=== PATIENT | male | born 1945 | race Caucasian/White ===

== ENCOUNTER 2022-07-10 08:20 | Outpatient (CLI) | payer MEDICARE, OTHER, SELFPAY ==
[2022-07-10 12:29] LABS: Chloride* 104 mmol/L (96-114)
[2022-07-10 12:30] LABS: Potassium* 4.5 mmol/L (3.6-5.1); Sodium* 138 mmol/L (135-149)
[2022-07-10 12:32] LABS: Blood Urea Nitrogen* 22 mg/dL (7-30); Carbon Dioxide* 28 mmol/L (20-32); Cholesterol* 162 mg/dL (90-199); Estimated Glomerular Filt Rate 77 ml/min; Glucose* 103 mg/dL (60-115)
[2022-07-10 12:33] LABS: Calcium* 8.7 mg/dL (8.4-10.6); HDL Cholesterol* 61 mg/dL (>=40); LDL Cholesterol Calculated 86 mg/dL (<100); Triglycerides* 76 mg/dL (40-149)
[2022-07-11 11:55] LABS: Sex Hormone Binding Globulin 38 nmol/L (19-76); Testosterone, Adult Male 261 ng/dL (300-720); Testosterone, Free Calculation 43 pg/mL (47-244); Testosterone, Percentage Free 1.6 % (1.6-2.9)
== END 2022-07-10 08:21 | disposition home or self-care (01) ==
LOC: NFLDREF 08:20
PROVIDERS: PCP Internal Medicine; Visit Provider Internal Medicine
DX: Z00.00 Encounter for general adult medical examination without abnormal findings (principal); R79.89 Other specified abnormal findings of blood chemistry; I10 Essential (primary) hypertension; E78.5 Hyperlipidemia, unspecified; F41.9 Anxiety disorder, unspecified
CPT/HCPCS: 80048; 80061; 84270; 84402; 84403

== ENCOUNTER 2022-07-30 14:25 | Outpatient (CLI) | payer MEDICARE, OTHER, SELFPAY ==
--- OUTSIDE RECORDS SUMMARY | 2022-07-30 14:27 | XMS_ITS | Clinical Summary ---
:1945 Author Organization [facility] [facility] [place] [address] Care Team Providers Name Role Phone Listed, Not Primary Care Provider Unavailable Allergies No known active allergies Medications Medication Sig Dispensed Refills Start Date End Date Status amLODIPine (NORVASC) 5 0 06/27/2020 Active mg tablet losartan (COZAAR) 100 0 08/12/2020 Active mg tablet simvastatin (ZOCOR) 10 0 07/17/2020 Active mg tablet tamsulosin (FLOMAX) 0.4 0 07/03/2020 Active mg capsule FLUoxetine 20 mg tablet 0 07/17/2020 Active aspirin chewable 81 mg Chew 1 Tablet (81 0 2 Active chewable tablet mg) by mouth once daily with a meal. Active Problems No known active problems Social History Tobacco Use Types Packs/Day Years Used Date Never Assessed Sex Assigned at Date Recorded Not on file Obstetrics History Last Filed Vital Signs Vital Sign Reading Time Taken Comments Blood Pressure 122/50 02/24/2022 1:38 PM CDT Pulse 86 02/24/2022 1:38 PM CDT Temperature 36.7 ??C (98.1 ??F) 02/24/2022 1:38 PM CDT Respiratory Rate 18 02/24/2022 1:38 PM CDT Oxygen Saturation 99% 02/24/2022 1:38 PM CDT Inhaled Oxygen Concentration - - Weight 85.3 kg (188 lb) 02/24/2022 1:38 PM CDT Height - - Body Mass Index - - Plan of Treatment Health Maintenance Due Date Last Done Comments Tdap 1954 Depression screening for age 12+ 1955 BMI (ht and wt on same day) for age 1211/11/1961 18+ Hepatitis C screening for age 18-79 1961 Tetanus booster 1963 Zoster (shingles) series for age 50+ 1993 (1 of 2) Pneumococcal series for age 65+ (1 - 2008 PCV) COVID-19 vaccine series (4 - Booster 11/13/2021 07/14/2021, 01/24/2021, for Pfizer series) 01/03/2021 Influenza for age 65+ 07/19/2022 Results Not on filefrom Last 3 Months Insurance Payer Benefit Plan / Subscriber ID Effective Dates Phone Addre ss Type Group MEDICARE PART B MEDICARE PART B [id number] 2008-Presen ATTN: CLAIMS - HB USE ONLY HB ONLY t [address] [place] [address] MEDICARE - PB MEDICARE PB [id number] 2008-Presen ATT N: CLAIMS USE ONLY ONLY t [address] [place] [address] PREFERRED ONE [employer] [id number] 2018-Presen [id number] [place] [address] Care Teams Fire Information Officer Relationship Specialty Start Date End Date Listed, Not PCP - General 07/12/20 [place] [address]
[2022-07-30 16:00] LABS: Albumin* 4.2 g/dL (3.3-5.0)
[2022-07-30 16:03] LABS: Alanine Aminotransferase* 14 U/L (4-50); Alkaline Phosphatase* 83 U/L (40-150); Aspartate Amino Transferase* 24 U/L (12-35); Bilirubin Direct* 0.2 mg/dL (0.0-0.5); Bilirubin Total* 0.6 mg/dL (0.1-1.5); Total Protein* 6.7 g/dL (6.0-8.3)
== END 2022-07-30 14:26 | disposition home or self-care (01) ==
PROVIDERS: PCP Internal Medicine; Visit Provider Internal Medicine
DX: R53.81 Other malaise (principal); R53.83 Other fatigue; E78.5 Hyperlipidemia, unspecified; I10 Essential (primary) hypertension; N40.0 Benign prostatic hyperplasia without lower urinary tract symptoms
CPT/HCPCS: 80076; 84443

== ENCOUNTER 2022-09-04 08:52 | Outpatient (CLI) | payer MEDICARE, OTHER, SELFPAY ==
--- OUTSIDE RECORDS SUMMARY | 2022-09-04 09:09 | XMS_ITS | Clinical Summary ---
:1945 Author Organization [facility] [facility] [place] [address] Care Team Providers Name Role Phone Listed, [...] PCV) COVID-19 vaccine series (4 - Booster 09/08/2021 07/14/2021, 01/24/2021, for Pfizer series) 01/03/2021 Influenza for age 65+ 07/19/2022 Results Not on filefrom Last 3 Months Insurance Payer Benefit Plan / Subscriber ID Effective Dates Phone Addre ss Type Group MEDICARE PART B MEDICARE PART B [id number] 2008-Presen ATTN: CLAIMS - HB USE ONLY HB ONLY t [address] [place] [address] MEDICARE - PB MEDICARE PB [id number] 2008-Presen ATT N: CLAIMS USE ONLY ONLY t [address] [place] [address] PREF[employer] [id number] 2018-Presen [id number] [place] [address] Care Teams Bone Cooking Operator Relationship Specialty Start Date End Date Listed, Not PCP - General 07/12/20 [place] [address]
== END 2022-09-04 08:53 | disposition home or self-care (01) ==
LOC: OP CLINIC 08:52
PROVIDERS: PCP Internal Medicine; Visit Provider Surgery
DX: Z12.11 Encounter for screening for malignant neoplasm of colon (principal); K57.30 Diverticulosis of large intestine without perforation or abscess without bleeding; K63.5 Polyp of colon; Z85.038 Personal history of other malignant neoplasm of large intestine; Z98.0 Intestinal bypass and anastomosis status
CPT/HCPCS: 45385; 88305; 99153; J2250; J3010

== ENCOUNTER 2022-12-21 09:14 | Outpatient (CLI) | payer MEDICARE, OTHER, SELFPAY ==
[2022-12-21 09:32] LABS: Basophils Percent Auto 0.4 % (0.0-3.0); Eosinophils Percent Auto 2.4 % (0.0-7.0); Hematocrit 47.2 % (37.0-53.0); Hemoglobin* 15.5 gm/dL (13.5-17.5); Immature Granulocytes Pct Auto 0.2 %; Lymphocytes Percent Auto 24.8 % (20-44); Mean Corpuscular HGB Conc 33 gm/dL (32-36); Mean Corpuscular Hemoglobin 30 pg (26-34); Mean Corpuscular Volume 92 fL (80-100); Monocytes Percent Auto 11.3 % (0.0-11.0); Neutrophils Percent Auto 60.9 % (42.0-72.0); Platelet Count* 192 K/uL (140-440); Red Blood Count 5.11 m/uL (4.30-5.90)
[2022-12-21 09:37] LABS: White Blood Count* 4.67 K/uL (4.50-11.00)
[2022-12-21 09:38] LABS: Slide Review Reflex No
[2022-12-21 09:51] LABS: Chloride* 106 mmol/L (96-114)
[2022-12-21 09:52] LABS: Albumin* 4.1 g/dL (3.3-5.0); Potassium* 4.2 mmol/L (3.6-5.1); Sodium* 140 mmol/L (135-149)
[2022-12-21 09:54] LABS: Aspartate Amino Transferase* 25 U/L (12-35); Carbon Dioxide* 31 mmol/L (20-32); Estimated Glomerular Filt Rate 77 ml/min
[2022-12-21 09:55] LABS: Alanine Aminotransferase* 19 U/L (4-50); Alkaline Phosphatase* 71 U/L (40-150); Blood Urea Nitrogen* 21 mg/dL (7-30); Calcium* 8.7 mg/dL (8.4-10.6); Glucose* 104 mg/dL (60-115)
--- NOTE | 2022-12-21 10:00 | CRLHL7_ITS ---
For Patients: As a result of the Century Cures Act, medical imaging exams and procedure reports are released immediately into your electronic medical record. You may view this report before your referring provider. If you have questions, please contact your health care provider. INDICATION: Colon cancer. TECHNIQUE: CT abdomen and pelvis acquired with intravenous contrast, 89 mL of Isovue 370. Coronal and sagittal reformats. COMPARISON: CT 03/21/2022. FINDINGS: The imaged lower chest demonstrates coronary artery calcifications. - Normal liver contour. No suspicious hepatic lesion. The portal veins are patent. No biliary dilatation. The gallbladder, pancreas, spleen, and adrenals are unremarkable. - Symmetric renal enhancement. Small left anterior renal cyst. Tiny nonobstructing left renal calculus. No hydronephrosis bilaterally. Unremarkable bladder. - Redemonstrated postsurgical changes of partial colectomy. The remaining colon appears normal in caliber and enhancement with extensive stool. Nondilated small bowel. - No free air, free fluid, focal collection, or lymphadenopathy. Unchanged retroaortic lymph node measuring 0.9 cm short axis (series 2, image 73). - Normal caliber abdominal aorta with moderate atherosclerotic calcification. Right total hip arthroplasty. Multilevel lumbar spondylosis. No suspicious osseous lesion. IMPRESSION: No evidence of abdominal/pelvic metastatic disease status post partial colectomy. Please note that all CT scans at this facility use dose modulation, iterative reconstruction, and/or weight-based dosing when appropriate to reduce radiation dose to as low as reasonably achievable. Dictated by Issa Kan MD @ 12/23/2022 2:35:21 PM (Electronically Signed)
== END 2022-12-21 09:15 | disposition home or self-care (01) ==
LOC: CT 09:15
PROVIDERS: PCP Internal Medicine; Visit Provider Internal Medicine Medical Oncology
DX: C18.9 Malignant neoplasm of colon, unspecified (principal)
CPT/HCPCS: 36415; 74177; 80053; 85025; Q9967

== ENCOUNTER 2023-01-07 13:30 | Outpatient (RCR) | payer MEDICARE, OTHER, SELFPAY ==
[2022-09-17 14:21] LABS: Basophils Absolute Auto 0.02 K/uL (0.00-0.30); Basophils Percent Auto 0.4 % (0.0-3.0); Eosinophils Absolute Auto 0.07 K/uL (0.00-0.50); Eosinophils Percent Auto 1.5 % (0.0-7.0); Hematocrit 42.9 % (37.0-53.0); Hemoglobin* 14.2 gm/dL (13.5-17.5); Immature Granulocytes Abs Auto 0.01 K/uL (0.00-0.30); Lymphocytes Absolute Auto 1.21 K/uL (0.90-2.90); Lymphocytes Percent Auto 26.8 % (20-44); Mean Corpuscular HGB Conc 33 gm/dL (32-36); Mean Corpuscular Hemoglobin 30 pg (26-34); Mean Corpuscular Volume 91 fL (80-100); Monocytes Percent Auto 10.4 % (0.0-11.0); Neutrophils Absolute Auto 2.74 K/uL (1.7-7.0); Neutrophils Percent Auto 60.7 % (42.0-72.0); Platelet Count* 195 K/uL (140-440); RDW Coefficient of Variation % 13.1 % (11.5-15.5); Red Blood Count 4.73 m/uL (4.30-5.90); White Blood Count* 4.52 K/uL (4.50-11.00)
[2022-09-17 14:29] LABS: Slide Review Reflex No
[2022-09-17 14:38] LABS: Chloride* 103 mmol/L (96-114)
[2022-09-17 14:39] LABS: Albumin* 4.2 g/dL (3.3-5.0); Potassium* 4.1 mmol/L (3.6-5.1); Sodium* 136 mmol/L (135-149)
[2022-09-17 14:42] LABS: Alanine Aminotransferase* 17 U/L (4-50); Alkaline Phosphatase* 79 U/L (40-150); Aspartate Amino Transferase* 24 U/L (12-35); Bilirubin Total* 0.5 mg/dL (0.1-1.5); Blood Urea Nitrogen* 21 mg/dL (7-30); Carbon Dioxide* 28 mmol/L (20-32); Creatinine* 0.9 mg/dL (0.5-1.5); Estimated Glomerular Filt Rate 87 ml/min; Glucose* 92 mg/dL (60-115); Total Protein* 6.7 g/dL (6.0-8.3)
[2022-09-17 14:43] LABS: Calcium* 8.5 mg/dL (8.4-10.6)
[2022-09-19 14:41] LABS: Carcinoembryonic Antigen 1.7 ng/mL
== END 2023-03-16 23:59 | disposition home or self-care (01) ==
LOC: CCIC 13:30
PROVIDERS: Internal Medicine Medical Oncology; Nurse Practitioner Family; PCP Internal Medicine; Referring Provider Internal Medicine; Visit Provider Physician Assistant
DX: C18.9 Malignant neoplasm of colon, unspecified (principal); D12.6 Benign neoplasm of colon, unspecified; L98.9 Disorder of the skin and subcutaneous tissue, unspecified
CPT/HCPCS: 36415; 80053; 82378; 85025; 99212; 99214; 99215

== ENCOUNTER 2023-07-29 08:08 | Outpatient (CLI) | payer MEDICARE, OTHER, SELFPAY | END 2023-07-29 08:09 | disposition home or self-care (01) | LOC: NFLDREF 07-31 01:13 | PROVIDERS: PCP Internal Medicine; Referring Provider Internal Medicine; Visit Provider Physician Assistant | DX: C18.9 Malignant neoplasm of colon, unspecified (principal); L98.9 Disorder of the skin and subcutaneous tissue, unspecified; E78.5 Hyperlipidemia, unspecified; I10 Essential (primary) hypertension | CPT/HCPCS: 80048; 80053; 80061; 82378; 84403 ==

== ENCOUNTER 2023-08-26 09:29 | Outpatient (CLI) | payer MEDICARE, OTHER, SELFPAY ==
--- NOTE | 2023-08-26 10:00 | CRLHL7_ITS ---
For Patients: As a result of the Century Cures Act, medical imaging exams and procedure reports are released immediately into your electronic medical record. You may view this report before your referring provider. If you have questions, please contact your health care provider. Indication: ADENOCARCINOMA OF LARGE INTESTINE FOLLOW UP Technique: Postcontrast CT chest, abdomen and pelvis. 88 cc Isovue 370 intravenous contrast. Please note that all CT scans at this facility use dose modulation, iterative reconstruction, and/or weight-based dosing when appropriate to reduce radiation dose to as low as reasonably achievable. Comparison: 12/21/2022 Findings: In the chest, minimal scarring is present. No pleural effusion, pneumothorax, pulmonary edema or infiltrate. No suspicious pulmonary nodule. No enlarged mediastinal, hilar or axillary lymph nodes. No fracture. In the abdomen, there is no intrahepatic mass. The gallbladder is incompletely distended. No calcified gallstones. No biliary obstruction. Calcification adjacent to the pancreas body is similar. Atherosclerotic changes in the aorta. Normal adrenal glands. Spleen is normal. Subcentimeter retroperitoneal lymph nodes are similar, including a left periaortic lymph node measuring 9 millimeters. Simple cyst left kidney measuring 2.3 cm. Nonobstructing 3 millimeter stone midportion left kidney. Right kidney normal. Postop changes of partial bowel resection. No bowel obstruction. Excess stool in the colon. No bowel wall thickening. No abdominal wall hernia. Similar subcentimeter mesenteric lymph nodes. In the pelvis, postop changes of the lower abdominal wall hernia repair. Right hip replacement hardware. Bladder normal. Degenerative changes lumbar spine with mild rightward curvature. No compression fracture. Impression: Innumerable subcentimeter retroperitoneal lymph nodes are similar to the prior study. Also similar subcentimeter mesenteric lymph nodes. Stable postop changes partial bowel resection. Chronic constipation. No bowel obstruction or inflammatory change. No evidence of metastatic disease to the chest or liver. Please note that all CT scans at this facility use dose modulation, iterative reconstruction, and/or weight-based dosing when appropriate to reduce radiation dose to as low as reasonably achievable. Dictated by Stephon Dempsey MD @ 08/26/2023 12:46:20 PM (Electronically Signed)
== END 2023-08-26 09:30 | disposition home or self-care (01) ==
PROVIDERS: PCP Internal Medicine; Visit Provider Physician Assistant
DX: C18.9 Malignant neoplasm of colon, unspecified (principal); K59.09 Other constipation
CPT/HCPCS: 71260; 74177; Q9967

== ENCOUNTER 2023-09-09 07:20 | Outpatient (CLI) | payer MEDICARE, OTHER, SELFPAY ==
--- NOTE | 2023-09-09 08:31 | W.ANESCHARGE ---
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
== END 2023-09-09 07:21 | disposition home or self-care (01) ==
LOC: OP CLINIC 07:20
PROVIDERS: PCP Internal Medicine; Visit Provider Internal Medicine
DX: Z12.11 Encounter for screening for malignant neoplasm of colon (principal); K63.5 Polyp of colon; K57.30 Diverticulosis of large intestine without perforation or abscess without bleeding; Z86.010 Personal history of colon polyps; Z85.038 Personal history of other malignant neoplasm of large intestine
CPT/HCPCS: 00812; 45380; 88305; 99100; J2704

== ENCOUNTER 2024-03-03 08:17 | Outpatient (CLI) | payer MEDICARE, OTHER, SELFPAY ==
--- OUTSIDE RECORDS SUMMARY | 2024-03-03 08:20 | XMS_ITS | Clinical Summary ---
Author Name Unknown Organization [facility] Address [place], [place] [address] Care Team Providers Care Vp Informatics Name Role Phone Listed, Not Primary Care Provider Unavailabl e Allergies No known active allergies Medications Medication Sig Dispensed Refills Start Date End Date Status amLODIPine (NORVASC) 5 mg tablet 06/27/2020 Active losartan (COZAAR) 100 mg tablet 08/12/2020 Active simvastatin (ZOCOR) 10 mg tablet 07/17/2020 Active tamsulosin (FLOMAX) 0.4 mg capsule 07/03/2020 Active FLUoxetine 20 mg tablet 07/17/2020 Active aspirin chewable 81 mg chewable tablet Chew 1 Tablet (81 mg) by mouth once daily with a meal. 0 02/24/2022 Active Active Problems No known active problems Social History Tobacco Use Types Packs/Day Years Used Date Smoking Tobacco: Never Assessed Sex and Gender Information Value Date Recorded Sex Assigned at Not on file Gender Identity Not on file Sexual Orientation Not on file Obstetrics History Last Filed Vital Signs Vital Sign Reading Time Taken Comments Blood Pressure 122/50 02/24/2022 1:38 PM CDT Pulse 86 02/24/2022 1:38 PM CDT Temperature 36.7 ??C (98.1 ??F) 02/24/2022 1:38 PM CD T Respiratory Rate 18 02/24/2022 1:38 PM CDT Oxygen Saturation 99% 02/24/2022 1:38 PM CDT Inhaled Oxygen Concentration - - Weight 85.3 kg (188 lb) 02/24/2022 1:38 PM CDT Height - - Body Mass Index - - Plan of Treatment Health Maintenance Due Date Last Done Comments Tdap 1954 Depression screening for age 12+ 1955 BMI (ht and wt on same day) for age 18+ 1961 Tetanus booster 1963 Zoster (shingles) series for age 50+ (1 of 2) 1993 Pneumococcal series for age 65+ (1 of 1 - PCV) 2008 COVID-19 vaccine series (4 - 2022-24 season) 2023 07/14/2021, 01/24/2021, 01/03/2021 Influenza for age 65+ 07/19/2024 Care Teams Vp Informatics Relationship Specialty Start Date End Date Listed, Not [place] [address] PCP - General 07/12/20
--- NOTE | 2024-03-03 09:00 | CT_ITS ---
Patient: MAHNAZ BOOTH Facility:?[facility] Patient ID:?[id number] Site Patient ID:?[id number]. Site :?1945 Study:?CT-Chest/Abd/Pelvis 88CC ISOVUE 370 AND WATER PREP-03/03/2024 9:33:13 AM Ordering Physician:?DR. ESPARZA Final Report: Indication: Follow-up colon cancer Technique: CT Chest/Abd/Pelvis 88CC ISOVUE 370 AND WATER PREP Please note that all CT scans at this facility use dose modulation, iterative reconstruction, and/or weight-based dosing when appropriate to reduce radiation dose to as low as reasonably achievable. Comparison: 08/26/2023 Findings: In the chest, small subpleural area of scarring within the superior segment of the right lower lobe is unchanged. No suspicious pulmonary nodule. Mild dependent scarring within the right lower lobe. Chronic atelectasis within the lingula. No pleural effusion or pulmonary edema. Visualized thyroid is within normal limits. No mediastinal, hilar or axillary adenopathy. No fracture. No suspicious osseous lesion. In the abdomen, no suspicious intrahepatic mass. Gallbladder is normal. No biliary obstruction. The pancreas is normal. Normal spleen. Adrenal glands are normal. Atherosclerotic changes. No aneurysm. Subcentimeter cyst within the right kidney. Stable 2.3 cm cyst left kidney. Nonobstructing stone within the midportion of the left kidney measures 4.0 millimeters, similar to the prior study. Stable subcentimeter aortocaval lymph nodes. In the pelvis, the bladder is normal. Postop changes of partial colectomy with primary anastomosis. No bowel obstruction. Increased stool throughout the colon. No inflammation. Appendix is absent. No pelvic sidewall or inguinal adenopathy. Postop changes of lower abdominal wall hernia repair. Multilevel degenerative disc disease and facet degeneration. No fracture. Right hip replacement hardware. Impression: No enlarged lymph nodes within the chest, abdomen or pelvis. Stable subcentimeter lymph nodes noted. No intrahepatic mass. Stable postop changes. Excess colonic stool consistent with constipation. No bowel obstruction or inflammation. Please note that all CT scans at this facility use dose modulation, iterative reconstruction, and/or weight-based dosing when appropriate to reduce radiation dose to as low as reasonably achievable. Dictated by Stephon Dempsey MD @ 03/03/2024 11:20:33 AM Signed by:?Stephon Dempsey MD @03/03/2024 11:20:33 AM (Electronic Signature)
== END 2024-03-03 08:18 | disposition home or self-care (01) ==
LOC: CT 08:19
PROVIDERS: PCP Internal Medicine; Visit Provider Internal Medicine Hematology & Oncology
DX: C18.9 Malignant neoplasm of colon, unspecified (principal); D12.6 Benign neoplasm of colon, unspecified
CPT/HCPCS: 36415; 71260; 74177; 80053; 82378; 85025; Q9967

== ENCOUNTER 2024-03-11 13:00 | Outpatient (RCR) | payer MEDICARE, OTHER, SELFPAY ==
[2024-03-03 08:58] LABS: Basophils Absolute Auto 0.02 K/uL (0.00-0.30); Basophils Percent Auto 0.4 % (0.0-3.0); Eosinophils Absolute Auto 0.14 K/uL (0.00-0.50); Eosinophils Percent Auto 2.9 % (0.0-7.0); Hematocrit 46.5 % (37.0-53.0); Hemoglobin* 15.1 gm/dL (13.5-17.5); Immature Granulocytes Abs Auto 0.02 K/uL (0.00-0.30); Immature Granulocytes Pct Auto 0.4 %; Lymphocytes Absolute Auto 1.09 K/uL (0.90-2.90); Lymphocytes Percent Auto 22.5 % (20-44); Mean Corpuscular HGB Conc 33 gm/dL (32-36); Mean Corpuscular Hemoglobin 30 pg (26-34); Mean Corpuscular Volume 92 fL (80-100); Monocytes Percent Auto 9.7 % (0.0-11.0); Neutrophils Absolute Auto 3.11 K/uL (1.7-7.0); Neutrophils Percent Auto 64.1 % (42.0-72.0); Platelet Count* 203 K/uL (140-440); RDW Coefficient of Variation % 12.7 % (11.5-15.5); Red Blood Count 5.07 m/uL (4.30-5.90); Slide Review Reflex No; White Blood Count* 4.85 K/uL (4.50-11.00)
[2024-03-03 09:03] LABS: Albumin* 4.3 g/dL (3.3-5.0); Chloride* 106 mmol/L (96-114); Sodium* 137 mmol/L (135-149)
[2024-03-03 09:04] LABS: Potassium* 4.4 mmol/L (3.6-5.1)
[2024-03-03 09:06] LABS: Alanine Aminotransferase* 18 U/L (4-50); Alkaline Phosphatase* 77 U/L (40-150); Anion Gap 1 mEq/L (7-15); Aspartate Amino Transferase* 27 U/L (12-35); Bilirubin Total* 0.9 mg/dL (0.1-1.5); Blood Urea Nitrogen* 18 mg/dL (7-30); Carbon Dioxide* 30 mmol/L (20-32); Creatinine* 0.9 mg/dL (0.5-1.5); Estimated Glomerular Filt Rate 86 ml/min; Glucose* 102 mg/dL (60-115); Total Protein* 7.2 g/dL (6.0-8.3)
[2024-03-03 09:07] LABS: Calcium* 8.9 mg/dL (8.4-10.6)
[2024-03-04 23:57] LABS: Carcinoembryonic Antigen 1.6 ng/mL
== END 2024-03-14 23:59 | disposition home or self-care (01) ==
LOC: CCIC 13:00
PROVIDERS: PCP Internal Medicine; Referring Provider Internal Medicine; Visit Provider Internal Medicine Hematology & Oncology
DX: C18.9 Malignant neoplasm of colon, unspecified (principal); D12.6 Benign neoplasm of colon, unspecified; L98.9 Disorder of the skin and subcutaneous tissue, unspecified
CPT/HCPCS: 36415; 80053; 82378; 85025; 99212; 99213; 99214; G0463

== ENCOUNTER 2024-07-30 07:50 | Outpatient (CLI) | payer MEDICARE, OTHER, SELFPAY ==
--- OUTSIDE RECORDS SUMMARY | 2024-08-03 14:40 | XMS_ITS | Clinical Summary ---
Author Organization [facility] [facility] Address [place], [place] [address] Care Team Providers Care Pad Hand Name Role Phone Listed, Not Primary Care [...] for age 50+ (1 of 2) 1993 RSV vaccine for adults or pr egnancy (1 - 1-dose 60+ series) 2003 Pneumococcal series for age 65+ (1 of 1 - PCV) 2008 COVID-19 vaccine series (2022- season) 2024 07/14/2021, 01/24/2021, 01/03/2021 Influenza for age 65+ 07/19/2024 Care Teams Pad Hand Relationship Specialty Start Date End Date Listed, [place] [address] PCP - General 07/12/20
== END 2024-07-30 07:51 | disposition home or self-care (01) ==
LOC: NFLDREF 08-03 14:39
PROVIDERS: PCP Internal Medicine; Referring Provider Internal Medicine; Visit Provider Internal Medicine
DX: E78.5 Hyperlipidemia, unspecified (principal); I10 Essential (primary) hypertension
CPT/HCPCS: 80048; 80061

== ENCOUNTER 2024-09-14 06:29 | Outpatient (CLI) | payer MEDICARE, OTHER, SELFPAY ==
--- OUTSIDE RECORDS SUMMARY | 2024-09-14 06:32 | XMS_ITS | Clinical Summary ---
Author Organization [employer] [facility] Address [place], [place] [address] Care Team Providers Care Tombstone Erector Helper Name Role Phone Listed, Not Primary Care [...] 65+ (1 of 1 - PCV) 2008 RSV vaccine for adults or pr egnancy (1 - 1-dose 75+ series) 2018 COVID-19 vaccine series (2023- season) 2024 07/14/2021, 01/24/2021, 01/03/2021 Influenza for age 65+ 07/19/2024 Care Teams Tombstone Erector Helper Relationship Specialty Start Date End Date Listed, Not [place] [address] PCP - General 07/12/20
--- NOTE | 2024-09-14 08:20 | W.ANESCHARGE ---
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
--- NOTE | 2024-09-14 09:35 | W.ANESCHARGE ---
Anesthesia Charges Start Date/Time Anesthesia Start Date: 09/14/24 Anesthesia Start Time: 07:33 Stop Date/Time Anesthesia Stop Date: 09/14/24 Anesthesia Stop Time: 08:20 Summary Extremes of Age - Over 70 or under 1: MDA
== END 2024-09-14 06:30 | disposition home or self-care (01) ==
LOC: OP CLINIC 06:30
PROVIDERS: PCP Internal Medicine; Visit Provider Surgery
DX: D12.2 Benign neoplasm of ascending colon (principal); Z85.038 Personal history of other malignant neoplasm of large intestine; Z98.0 Intestinal bypass and anastomosis status
CPT/HCPCS: 00811; 45385; 99100; J2704

== ENCOUNTER 2024-09-25 08:34 | Outpatient (CLI) | payer MEDICARE, OTHER, SELFPAY ==
--- OUTSIDE RECORDS SUMMARY | 2024-09-25 08:37 | XMS_ITS | Clinical Summary ---
Author Organization [employer] [facility] Address [place], [place] [address] Care Team Providers Care Manufacturer'S Representative Name Role Phone Listed, Not Primary Care [...] Influenza for age 65+ 07/19/2024 Care Teams Manufacturer'S Representative Relationship Specialty Start Date End Date Listed, [place] [address] PCP - General 07/12/20
--- NOTE | 2024-09-25 09:00 | CRLHL7_ITS ---
For Patients: As a result of the Century Cures Act, medical imaging exams and procedure reports are released immediately into your electronic medical record. You may view this report before your referring provider. If you have questions, please contact your health care provider. INDICATION: Colon cancer TECHNIQUE: CT chest, abdomen and pelvis acquired with 89 mL Isovue 370 COMPARISON: CT 08/26/2023 FINDINGS: CHEST: Cardiovascular structures: Aneurysmal dilatation ascending thoracic aorta measuring 4.5 cm heart size normal caliber thoracic aorta Mediastinum and mariangel: No mass or adenopathy. Lungs and pleura: Lungs and pleural spaces are clear. No suspicious nodules, infiltrates, or effusions. Chest wall and axilla: No mass or adenopathy. ABDOMEN AND PELVIS: Liver: Unremarkable. Gallbladder and bile ducts: Unremarkable. Pancreas: Unremarkable. Spleen: Unremarkable. Adrenal glands: Unremarkable. Kidneys: Small nonobstructing left renal calculus. Left renal cysts GI tract: Diverticulosis postoperative changes partial colectomy. Large amount of stool within the colon Vascular structures: Abdominal aorta is normal in caliber. Lymph nodes: 1 centimeter retroaortic lymph node short axis 2/176 overall not significantly changed. Miscellaneous: Unremarkable. No free air or significant free fluid. Pelvic Organs: Enlarged prostate gland Bones: No suspicious bone lesions. Postsurgical changes right hip arthroplasty IMPRESSION: Stable CT chest abdomen pelvis. No findings for recurrence or metastatic disease. Stable mildly prominent retroaortic lymph node. Please note that all CT scans at this facility use dose modulation, iterative reconstruction, and/or weight-based dosing when appropriate to reduce radiation dose to as low as reasonably achievable. Dictated by Jennifer De La O MD @ 09/26/2024 2:48:02 PM (Electronically Signed)
[2024-09-25 09:13] LABS: Creatinine* 0.9 mg/dL (0.5-1.5); Estimated Glomerular Filt Rate 86 ml/min
== END 2024-09-25 08:35 | disposition home or self-care (01) ==
LOC: CT 08:35
PROVIDERS: PCP Internal Medicine; Visit Provider Internal Medicine Hematology & Oncology
DX: C18.9 Malignant neoplasm of colon, unspecified (principal)
CPT/HCPCS: 36415; 71260; 74177; 82565; Q9967

== ENCOUNTER 2024-11-30 07:18 | Outpatient (CLI) | payer MEDICARE, OTHER, SELFPAY ==
--- NOTE | 2024-11-30 07:53 | P.ANES_ITS ---
Anesthesia Charges Start Date/Time Anesthesia Start Date: 11/30/24 Anesthesia Start Time: 07:58 Stop Date/Time Anesthesia Stop Date: 11/30/24 Anesthesia Stop Time: 08:26 Summary Extremes of Age - Over 70 or under 1: ASSOCIATE FINANCIAL ANALYST Coding CPT Codes CPT Codes: ANATOLIY LWR INTST SCR COLSC - 10930 ([id number]) P2 - PATIENT W/MILD SYST DISEASE, QX - ASSOCIATE FINANCIAL ANALYST SVC W/ MD MED DIRECTION, QK - PRESCHOOL PARAPROFESSIONAL 2-4 CNCRNT ANES PROC Additional Codes: Summary - Extremes of Age - Over 70 or under 1: ASSOCIATE FINANCIAL ANALYST ([id number])
--- NOTE | 2024-11-30 07:53 | W.ANESCHARGE ---
Anesthesia Charges Start Date/Time Anesthesia Start Date: 11/30/24 Anesthesia Start Time: 07:58 Stop Date/Time Anesthesia Stop Date: 11/30/24 Anesthesia Stop Time: 08:26 Summary Extremes of Age - Over 70 or under 1: HARD METALS ENGRAVER HAND Coding CPT Codes CPT Codes: ANATOLIY LWR INTST SCR COLSC - 44168 ([id number]) P2 - PATIENT W/MILD SYST DISEASE, QX - HARD METALS ENGRAVER HAND SVC W/ MD MED DIRECTION, QK - SURGEON/PRESIDENT 2-4 CNCRNT ANES PROC Additional Codes: Summary - Extremes of Age - Over 70 or under 1: HARD METALS ENGRAVER HAND ([id number])
--- NOTE | 2024-11-30 08:56 | P.ANES_ITS ---
Anesthesia Charges Start Date/Time Anesthesia Start Date: 11/30/24 Anesthesia Start Time: 07:58 Stop Date/Time Anesthesia Stop Date: 11/30/24 Anesthesia Stop Time: 08:26 Summary Extremes of Age - Over 70 or under 1: MDA Coding CPT Codes CPT Codes: ANES LWR INTST SCR COLSC - 20012 ([id number]) QK - ROCKET ENGINE COMPONENT MECHANIC 2-4 CNCRNT ANES PROC, QX - MINE UTILITY OPERATOR SVC W/ MD MED DIRECTION, P2 - PATIENT W/MILD SYST DISEASE Additional Codes: Summary - Extremes of Age - Over 70 or under 1: MDA ([id number])
== END 2024-11-30 07:19 | disposition home or self-care (01) ==
LOC: OP CLINIC 07:20
PROVIDERS: PCP Internal Medicine; Visit Provider Internal Medicine
DX: Z98.0 Intestinal bypass and anastomosis status (principal)
CPT/HCPCS: 00812; 45378; 99100; J2704

== ENCOUNTER 2025-03-22 08:30 | Outpatient (RCR) | payer MEDICARE, OTHER, SELFPAY ==
[2024-09-28 09:31] LABS: Basophils Percent Auto 0.5 % (0.0-3.0); Eosinophils Percent Auto 1.2 % (0.0-7.0); Hematocrit 44.7 % (37.0-53.0); Hemoglobin* 14.7 gm/dL (13.5-17.5); Lymphocytes Percent Auto 23.7 % (20-44); Mean Corpuscular HGB Conc 33 gm/dL (32-36); Mean Corpuscular Hemoglobin 30 pg (26-34); Mean Corpuscular Volume 92 fL (80-100); Monocytes Percent Auto 11.9 % (0.0-11.0); Neutrophils Percent Auto 62.7 % (42.0-72.0); Platelet Count* 182 K/uL (140-440); RDW Coefficient of Variation % 13.1 % (11.5-15.5); Red Blood Count 4.86 m/uL (4.30-5.90); White Blood Count* 4.27 K/uL (4.50-11.00)
[2024-09-28 09:34] LABS: Slide Review Reflex No
[2024-09-28 09:43] LABS: Chloride* 102 mmol/L (96-114)
[2024-09-28 09:44] LABS: Potassium* 3.9 mmol/L (3.6-5.1); Sodium* 137 mmol/L (135-149)
[2024-09-28 09:46] LABS: Anion Gap 5 mEq/L (7-15); Aspartate Amino Transferase* 28 U/L (12-35); Bilirubin Total* 0.7 mg/dL (0.1-1.5); Blood Urea Nitrogen* 21 mg/dL (7-30); Carbon Dioxide* 30 mmol/L (20-32); Creatinine* 0.9 mg/dL (0.5-1.5); Estimated Glomerular Filt Rate 86 ml/min; Total Protein* 6.5 g/dL (6.0-8.3)
[2024-09-28 09:47] LABS: Alanine Aminotransferase* 19 U/L (4-50); Alkaline Phosphatase* 64 U/L (40-150); Calcium* 9.1 mg/dL (8.4-10.6); Glucose* 98 mg/dL (60-115)
[2024-09-30 00:17] LABS: Carcinoembryonic Antigen 1.8 ng/mL
--- NOTE | 2024-10-30 12:36 | PC.NURSE ---
Called pt today to check in on his colonoscopy rescheduling. Pt states that he hasn't received a call. RN contacted the Endoscopy department and they will look into this. Initial scope order was per Dr. Hodge. Endoscopy staff will reach out to her if another order is required. RN asked that [facility] be kept in the loop as well.
--- NOTE | 2024-11-03 11:24 | ONC.NURNOTE ---
Received a call from Endoscopy stating that patient is scheduled for a colonoscopy on 11/30/23.
--- NOTE | 2025-01-01 15:31 | ONC.NURNOTE ---
Patient notified that Dr. Leonard reviewed colonoscopy and is happy with results and patient stated he was as well. Plan is follow up in 6 months
[2025-03-22 08:59] LABS: Basophils Absolute Auto 0.03 K/uL (0.00-0.30); Basophils Percent Auto 0.6 % (0.0-3.0); Eosinophils Absolute Auto 0.08 K/uL (0.00-0.50); Eosinophils Percent Auto 1.7 % (0.0-7.0); Hematocrit 42.8 % (37.0-53.0); Hemoglobin* 14.2 gm/dL (13.5-17.5); Immature Granulocytes Abs Auto 0.01 K/uL (0.00-0.30); Immature Granulocytes Pct Auto 0.2 %; Lymphocytes Absolute Auto 1.29 K/uL (0.90-2.90); Lymphocytes Percent Auto 26.8 % (20-44); Mean Corpuscular HGB Conc 33 gm/dL (32-36); Mean Corpuscular Hemoglobin 30 pg (26-34); Mean Corpuscular Volume 92 fL (80-100); Monocytes Percent Auto 9.4 % (0.0-11.0); Neutrophils Absolute Auto 2.95 K/uL (1.7-7.0); Neutrophils Percent Auto 61.3 % (42.0-72.0); Platelet Count* 204 K/uL (140-440); RDW Coefficient of Variation % 12.6 % (11.5-15.5); Red Blood Count 4.68 m/uL (4.30-5.90); White Blood Count* 4.81 K/uL (4.50-11.00)
[2025-03-22 09:03] LABS: Chloride* 103 mmol/L (96-114)
[2025-03-22 09:04] LABS: Albumin* 3.9 g/dL (3.3-5.0); Potassium* 3.8 mmol/L (3.6-5.1); Sodium* 140 mmol/L (135-149)
[2025-03-22 09:06] LABS: Blood Urea Nitrogen* 19 mg/dL (7-30); Est. Creatinine Clearance* 56.05; Estimated Glomerular Filt Rate 76 ml/min
[2025-03-22 09:07] LABS: Alanine Aminotransferase* 19 U/L (4-50); Alkaline Phosphatase* 65 U/L (40-150); Anion Gap 7 mEq/L (7-15); Aspartate Amino Transferase* 29 U/L (12-35); Bilirubin Total* 0.7 mg/dL (0.1-1.5); Calcium* 8.7 mg/dL (8.4-10.6); Carbon Dioxide* 30 mmol/L (20-32); Glucose* 94 mg/dL (60-115); Total Protein* 6.6 g/dL (6.0-8.3)
[2025-03-22 09:10] LABS: Slide Review Reflex No
[2025-03-24 05:01] LABS: Carcinoembryonic Antigen 1.6 ng/mL
== END 2025-03-24 23:59 | disposition home or self-care (01) ==
LOC: CCIC 08:30
PROVIDERS: Internal Medicine Hematology & Oncology; PCP Internal Medicine; Referring Provider Internal Medicine; Visit Provider Internal Medicine Hematology & Oncology
DX: C18.9 Malignant neoplasm of colon, unspecified (principal)
CPT/HCPCS: 36415; 80053; 82378; 85025; 99213; 99214; G0463

== ENCOUNTER 2025-08-10 08:35 | Outpatient (CLI) | payer MEDICARE, OTHER, SELFPAY | END 2025-08-10 08:36 | disposition home or self-care (01) | LOC: NFLDREF 08-13 18:53 | PROVIDERS: PCP Internal Medicine; Referring Provider Internal Medicine; Visit Provider Internal Medicine | DX: I10 Essential (primary) hypertension (principal); E78.5 Hyperlipidemia, unspecified | CPT/HCPCS: 80048; 80061 ==

== ENCOUNTER 2025-09-21 12:30 | Outpatient (RCR) | payer MEDICARE, OTHER, SELFPAY ==
[2025-09-21 12:52] LABS: Hematocrit* 46.0 % (37.0-53.0); Hemoglobin* 14.9 gm/dL (13.5-17.5); Immature Granulocytes Abs Auto 0.01 K/uL (0.00-0.30); Immature Granulocytes Pct Auto 0.2 %; Lymphocytes Absolute Auto 1.24 K/uL (0.90-2.90); Mean Corpuscular HGB Conc 32 gm/dL (32-36); Mean Corpuscular Hemoglobin 30 pg (26-34); Mean Corpuscular Volume 92 fL (80-100); RDW Coefficient of Variation % 12.9 % (11.5-15.5); Red Blood Count* 5.01 m/uL (4.30-5.90); White Blood Count* 5.04 K/uL (4.50-11.00)
[2025-09-21 12:53] LABS: Slide Review Reflex No
[2025-09-21 13:10] LABS: Albumin* 4.1 g/dL (3.3-5.0); Chloride* 102 mmol/L (96-114); Potassium* 4.7 mmol/L (3.6-5.1); Sodium* 137 mmol/L (135-149)
[2025-09-21 13:13] LABS: Alanine Aminotransferase* 16 U/L (4-50); Alkaline Phosphatase* 72 U/L (40-150); Anion Gap 5 mEq/L (7-15); Aspartate Amino Transferase* 24 U/L (12-35); Bilirubin Total* 1.0 mg/dL (0.1-1.5); Blood Urea Nitrogen* 17 mg/dL (7-30); Calcium* 9.0 mg/dL (8.4-10.6); Carbon Dioxide* 30 mmol/L (20-32); Creatinine* 0.9 mg/dL (0.5-1.5); Est. Creatinine Clearance* 56.05; Estimated Glomerular Filt Rate 86 ml/min; Glucose* 107 mg/dL (60-115); Total Protein* 7.0 g/dL (6.0-8.3)
[2025-09-22 23:27] LABS: Carcinoembryonic Antigen 1.8 ng/mL
== END 2025-09-25 23:59 | disposition home or self-care (01) ==
LOC: CCIC 12:30
PROVIDERS: Physician Assistant; PCP Internal Medicine; Referring Provider Internal Medicine; Visit Provider Internal Medicine Hematology & Oncology
DX: C18.9 Malignant neoplasm of colon, unspecified (principal); I71.21 Aneurysm of the ascending aorta, without rupture; D12.6 Benign neoplasm of colon, unspecified
CPT/HCPCS: 36415; 80053; 82378; 85025; 99214; G0463

== ENCOUNTER 2025-09-21 12:49 | Outpatient (CLI) | payer MEDICARE, OTHER, SELFPAY ==
--- NOTE | 2025-09-21 13:00 | CRLHL7_ITS ---
For Patients: As a result of the Century Cures Act, medical imaging exams and procedure reports are released immediately into your electronic medical record. You may view this report before your referring provider. If you have questions, please contact your health care provider. INDICATION: Malignant neoplasm of colon TECHNIQUE: CT chest, abdomen and pelvis acquired with 90 mL Isovue 370 IV contrast. COMPARISON: 09/25/[address] FINDINGS: CHEST: Cardiovascular structures: 4.5 cm ascending aortic aneurysm, unchanged. Coronary artery calcifications. Aortic valve calcifications. Mediastinum and mariangel: No mass or adenopathy. Lungs and pleura: Lungs and pleural spaces are clear. No suspicious nodules, infiltrates, or effusions. Chest wall and axilla: No mass or adenopathy. Bones: No suspicious bone lesions. Unremarkable for age. ABDOMEN AND PELVIS: Liver: Unremarkable. Gallbladder and bile ducts: Unremarkable. Pancreas: Unremarkable. Spleen: Unremarkable. Adrenal glands: Unremarkable. Kidneys: Punctate nonobstructing stone in the left kidney. Bilateral renal cysts. GI tract: Surgical anastomosis in the rectosigmoid. Large amount of stool in the remainder of the colon. No obstruction. Appendectomy. Vascular structures: Unremarkable. Lymph nodes: Aortocaval node on image 72 of series 7 measures 9 mm in short axis diameter versus 1 cm previously, differences likely due to measurement. Miscellaneous: Left inguinal hernia repair. Suspect small fat containing right inguinal hernia. Pelvic Organs: Enlarged prostate. Bones: Right hip arthroplasty. No suspicious bone lesions. IMPRESSION: 1. No significant change. 2. Stable aortocaval lymph node. 3. Stable 4.6 cm ascending aortic aneurysm. Please note that all CT scans at this facility use dose modulation, iterative reconstruction, and/or weight-based dosing when appropriate to reduce radiation dose to as low as reasonably achievable. Dictated by Vamshi Sin MD @ 09/22/2025 8:41:49 AM (Electronically Signed)
== END 2025-09-21 12:50 | disposition home or self-care (01) ==
LOC: CT 12:51
PROVIDERS: PCP Internal Medicine; Visit Provider Physician Assistant
DX: C18.9 Malignant neoplasm of colon, unspecified (principal); I71.21 Aneurysm of the ascending aorta, without rupture; D12.6 Benign neoplasm of colon, unspecified
CPT/HCPCS: 71260; 74177; Q9967